=== PATIENT | male | born 1955 | race Two or more races ===

== ENCOUNTER 2017-12-17 21:14 | Emergency (ER) | payer OTHER ==
[~2017-12-17] VITALS: Ht 172.7 cm; Wt 88.0 kg
[2017-12-17] MEDS ORDERED: IBUPROFEN (21:29)
[2017-12-17] MEDS ORDERED: COLC0.6T37 PO (21:29)
[2017-12-17] MEDS ORDERED: MORPHINE SULFATE 4 MG/ML, 1ML ONE (21:50)
[2017-12-17] MEDS ORDERED: ONDANSETRON ODT 4 MG ONE (21:50)
[2017-12-17] MEDS ORDERED: KETOROLAC 30 MG/1 ML ONE (21:50)
[2017-12-17] MEDS ORDERED: SODIUM CHLORIDE FLUSH 10ML SYR IVF ONE (22:00)
[2017-12-17] MEDS ORDERED: MORPHINE SULFATE 4 MG/ML, 1ML IV PRN (22:00)
[2017-12-17] MEDS ORDERED: KETOROLAC 30 MG/1 ML IVPush ONE (22:00)
[2017-12-17] MEDS ORDERED: ONDANSETRON ODT 4 MG PO ONE (22:00)
[2017-12-17 22:02] LABS: BASOPHILS # (AUTO) 0.02 x10^3/uL (0-0.1); BASOPHILS % (AUTO) 0 % (0-1); EOSINOPHILS # (AUTO) 0.16 x10^3/uL (0-0.4); EOSINOPHILS % (AUTO) 2 % (1-7); LYMPHOCYTES # (AUTO) 1.18 x10^3/uL (1-3.4); LYMPHOCYTES % (AUTO) 14 % (22-44); MD NO; MEAN CORPUSCULAR HEMOGLOBIN 31.8 pg (27.5-34.5); MEAN CORPUSCULAR HGB CONC 34.6 g/dL (33.2-36.2); MEAN CORPUSCULAR VOLUME 91.8 fL (81-97); MEAN PLATELET VOLUME 8.3 fL (7.4-10.4); MONOCYTES # (AUTO) 0.97 x10^3/uL (0.2-0.8); MONOCYTES % (AUTO) 11 % (2-9); NEUTROPHILS # (AUTO) 6.38 x10^3/uL (1.8-6.8); NEUTROPHILS % (AUTO) 73 % (42-75); PLATELET COUNT 176 x10^3/uL (130-400); RED BLOOD COUNT 4.48 x10^6/uL (4.38-5.82); RED CELL DISTRIBUTION WIDTH 12.4 % (9.4-14.8)
[2017-12-17 22:05] LABS: ALBUMIN 3.6 g/dL (3.4-5.0); ANION GAP 8 mmol/L (5-15); CALCIUM 8.6 mg/dL (8.5-10.1); CHLORIDE 103 mmol/L (98-107); CREATININE 0.92 mg/dL (0.7-1.3)
[2017-12-17 22:17] LABS: HCT (SEDRATE) 40.9 % (39.2-51.8)
[2017-12-17 22:40] VITALS: BP 141/72
== END 2017-12-17 22:43 | disposition home or self-care (01) ==
LOC: ED 22:05
DX: M79.671 Pain in right foot (principal); L03.115 Cellulitis of right lower limb
CPT/HCPCS: 36415; 73630; 80048; 82040; 84550; 85025; 85651; 96374; 96375; 99285; J1885; Q0162

== ENCOUNTER → 2017-12-22 | Outpatient (CLI) | payer OTHER ==
[~2017-12-22] MED LIST: CEPH-368 PO; COLC0.6T37 PO; HYDR-3237 PO; IBUP-1222 PO; IBUPROFEN; INDO50CA PO; SULF-169 PO
== END ==
LOC: CFH 14:48
PROVIDERS: ATTEND Orthopaedic Surgery
DX: M19.071 Primary osteoarthritis, right ankle and foot (principal); M25.871 Other specified joint disorders, right ankle and foot; M25.474 Effusion, right foot; L03.115 Cellulitis of right lower limb

== ENCOUNTER → 2017-12-24 | Outpatient (CLI) | payer OTHER ==
[~2017-12-24] VITALS: Ht 172.7 cm; Wt 83.4 kg
[~2017-12-24] MED LIST changes: +BACITRACIN 50,000 UNIT ONE; +FENTANYL PF 100 MCG/2ML ONE; +LACTATED RINGERS 1,000 ML IV SCH; +PLEASE ENTER HEIGHT AND WEIGHT MC SCH
[2017-12-24 12:45] VITALS: BP 119/78
== END ==
LOC: OUT 11:53 → EDSTATUS 14:00
PROVIDERS: ATTEND Orthopaedic Surgery Foot and Ankle Surgery
DX: Z01.810 Encounter for preprocedural cardiovascular examination (principal); L03.115 Cellulitis of right lower limb; M25.474 Effusion, right foot; Q66.7 Congenital pes cavus
CPT/HCPCS: 93005; J3010